=== PATIENT | female | born 1995 | race Caucasian/White ===

== ENCOUNTER → 2019-07-29 16:52 | Outpatient (BNVA) | payer OTHER, SELFPAY | PROVIDERS: Family Provider Nurse Practitioner; PCP Nurse Practitioner; Visit Provider Nurse Practitioner | DX: F41.9 Anxiety disorder, unspecified (principal); Z13.6 Encounter for screening for cardiovascular disorders; Z30.41 Encounter for surveillance of contraceptive pills | CPT/HCPCS: 80053; 80061; 84443; 85025 ==

== ENCOUNTER → 2020-05-21 11:14 | Outpatient (BNVA) | payer OTHER, SELFPAY | PROVIDERS: Family Provider Nurse Practitioner; PCP Nurse Practitioner; Visit Provider Nurse Practitioner Family | DX: Z20.828 Contact with and (suspected) exposure to other viral communicable diseases (principal); J06.9 Acute upper respiratory infection, unspecified | CPT/HCPCS: 87635 ==

== ENCOUNTER → 2020-11-06 10:07 | Outpatient (BNVA) | payer OTHER, SELFPAY | PROVIDERS: Family Provider Nurse Practitioner; PCP Nurse Practitioner; Visit Provider Nurse Practitioner | DX: R53.83 Other fatigue (principal); E55.9 Vitamin D deficiency, unspecified; R13.10 Dysphagia, unspecified; E07.9 Disorder of thyroid, unspecified | CPT/HCPCS: 80053; 81000; 82306; 82607; 83735; 84439; 84443; 84481; 85025; 85651; 86140; 86800 ==

== ENCOUNTER 2020-12-16 14:16 | Outpatient (CLI) | payer OTHER, SELFPAY ==
--- NOTE | 2020-12-16 14:15 | US_ITS ---
WS: [id number] THYROID ULTRASOUND (TI-RADS CRITERIA) History: Neck pressure and swollen. Technique: Ultrasound examination of the thyroid and adjacent soft tissues is performed. FINDINGS: Right lobe: 4.9 cm x 1.2 cm x 1.5 cm. Volume: 4.7 cm3. Normal size and echotexture. No significant are dominant nodules are present. Subcentimeter colloid n odule in the mid RIGHT gland. Lymph nodes: None. Left lobe: 4.9 cm x 1.3 cm x 1.0 cm. Volume: 3.2 cm3. Normal size and echotexture. No significant or dominant nodules are present. Mildly heterogeneous gland. No suspicious mass. There are a few colloid nodules. Isthmus: 0.3 cm. US/US thyroid [id number] Impression: No suspicious thyroid nodules. No thyroid enlargement.
== END 2020-12-16 14:17 | disposition home or self-care (01) ==
PROVIDERS: PCP Nurse Practitioner; Visit Provider Nurse Practitioner
DX: R13.10 Dysphagia, unspecified (principal)
CPT/HCPCS: 76536

== ENCOUNTER → 2021-06-14 15:49 | Outpatient (BNVA) | payer SELFPAY | PROVIDERS: PCP Nurse Practitioner; Visit Provider Nurse Practitioner | DX: F42.9 Obsessive-compulsive disorder, unspecified (principal); F41.9 Anxiety disorder, unspecified; Z12.4 Encounter for screening for malignant neoplasm of cervix | CPT/HCPCS: 88175 ==

== ENCOUNTER → 2023-03-16 13:32 | Outpatient (BNVA) | payer MEDICAID, SELFPAY | PROVIDERS: PCP Family Medicine; Visit Provider Family Medicine | DX: Z00.00 Encounter for general adult medical examination without abnormal findings (principal) | CPT/HCPCS: 80053; 85025 ==

== ENCOUNTER → 2023-04-19 08:05 | Outpatient (BNVA) | payer SELFPAY | PROVIDERS: PCP Family Medicine; Visit Provider Family Medicine | DX: N28.9 Disorder of kidney and ureter, unspecified (principal); Z01.818 Encounter for other preprocedural examination | CPT/HCPCS: 81000 ==

== ENCOUNTER → 2023-04-21 09:03 | Outpatient (BNVA) | payer SELFPAY | PROVIDERS: PCP Family Medicine; Visit Provider Family Medicine | DX: N28.9 Disorder of kidney and ureter, unspecified (principal); Z00.00 Encounter for general adult medical examination without abnormal findings | CPT/HCPCS: 80048; 83735 ==

== ENCOUNTER → 2023-09-05 15:28 | Outpatient (BNVA) | payer MEDICAID, SELFPAY | PROVIDERS: PCP Family Medicine; Visit Provider Family Medicine | DX: L98.9 Disorder of the skin and subcutaneous tissue, unspecified (principal) | CPT/HCPCS: 80053; 83520; 84443; 85025 ==

== ENCOUNTER → 2023-12-19 09:46 | Outpatient (BNVA) | payer MEDICAID, SELFPAY | PROVIDERS: PCP Family Medicine; Visit Provider Nurse Practitioner Family | DX: M79.642 Pain in left hand (principal) | CPT/HCPCS: 73130 ==

== ENCOUNTER 2024-01-23 06:00 | Outpatient (CLI) | payer BC, MEDICAID, SELFPAY | END 2024-01-23 06:01 | disposition home or self-care (01) | LOC: RAD 02-16 09:25 | PROVIDERS: PCP Family Medicine; Visit Provider Specialist | DX: Q79.60 Ehlers-Danlos syndrome, unspecified (principal) | CPT/HCPCS: 36415; 82652; 85651; 86160; 86162; 86235; 86255; 86376; 86431 ==

== ENCOUNTER 2024-02-22 07:00 | Outpatient (CLI) | payer BC, MEDICAID, SELFPAY ==
--- NOTE | 2024-02-22 07:00 | USCV_ITS ---
Te Osiris Age: 28 Gender: F : 1995 Exam Date: 02/22/2024 07:14 Ordering Phys: Gracie Vasques MD Technologist: Exam Location: [facility] [place] Indication: cp BP: 120 / 73 HR: 76 Rhythm: Sinus Technical Quality: Adequate MEASUREMENTS (Male / Female) Normal Values 2D ECHO LV Diastolic Diameter PLAX 4.2 cm 4.2 - 5.9 / 3.9 - 5.3 cm IVS Diastolic Thickness 1.1 cm 0.6 - 1.0 / 0.6 - 0.9 cm IVS Systolic Thickness 1.3 cm LVPW Diastolic Thickness 0.9 cm 0.6 - 1.0 / 0.6 - 0.9 cm LVPW Systolic Thickness 1.4 cm LVOT Diameter 2.3 cm LV Ejection Fraction 2D Teich 68.1 % LV Ejection Fraction MOD 4C 58.0 % LV Ejection Fraction MOD 2C 61.9 % LV Ejection Fraction 2C AL 59.9 % LA Diameter 2.8 cm RA Systolic Volume 4C AL 33.9 ml RA Systolic Volume 4C MOD 31.4 ml LA Sys Volume AL 52.0 cm cubed LA Sys Volume Index AL 29.8 cm cubed/m squared Aorta at Sinotubular Diameter 2.3 cm IVC Diameter 1.8 cm M-MODE LA Ao Ratio MM 1.2 AV Cusp Separation MM 2.2 cm DOPPLER AV Peak Velocity 119.0 cm/s LVOT Peak Velocity 103.0 cm/s AV Area Cont Eq vti 3.7 cm squared AV Area Cont Eq pk 3.5 cm squared MV Peak Velocity 70.0 cm/s MV Area PHT 7.6 cm squared Mitral E to A Ratio 1.2 TV Peak Velocity 191.0 cm/s TR Peak Velocity 225.0 cm/s TR Peak Gradient 20.3 mmHg TV Peak E Velocity 113.0 cm/s Right Atrial Pressure 3.0 mmHg Pulmonary Artery Systolic Pressu 23.3 mmHg PV Peak Velocity 95.0 cm/s FINDINGS Left Ventricle Normal left ventricular size, systolic function and wall thickness, with no regional wall motion abnormalities. Left ventricular ejection fraction is estimated at 60 %. Normal diastolic function. Right Ventricle The right ventricle is normal in size and function. Right Atrium The right atrium is normal in size. Left Atrium The left atrium is normal in size. Mitral Valve Structurally normal mitral valve without significant stenosis or prolapse. There is no mitral regurgitation. Aortic Valve Structurally normal aortic valve without significant sclerosis or stenosis. There is no aortic regurgitation. Tricuspid Valve Structurally normal tricuspid valve without significant stenosis and trace regurgitation. Pulmonary artery systolic pressure is normal. Pulmonic Valve Structurally normal pulmonic valve without significant stenosis. There is no pulmonic regurgitation. Pericardium Normal pericardium without effusion. Aorta Normal ascending aorta dimension. IVC The inferior vena cava appears normal. CONCLUSIONS Normal left ventricular size, systolic function and wall thickness, with no regional wall motion abnormalities. Left ventricular ejection fraction is estimated at 60 %. Normal diastolic function. Structurally normal tricuspid valve without significant stenosis and trace regurgitation. Pulmonary artery systolic pressure is normal. There is no pericardial effusion. Right atrial pressure is around 5 mm of mercury. Lazaro Koch MD (Electronically Signed) Final Date: 22 February 2024 10:19 S
--- NOTE | 2024-02-22 07:09 | XR_ITS ---
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 No vertebral body. Normal odontoid. Intervertebral disc spaces are intact and well preserved. Normal facet joint alignment. 2 mm of anterolisthesis of C2 in relation to C3 with 1 to 2 mm of anterolisthesis of C3 in relation t o C4. These listheses are relatively stable in flexion and reduces in extension. No other vertebral b dawson movement with flexion or extension. XR/XR cervical spine fl/ex [id number] IMPRESSION: Abnormal cervical spine curvature and listheses as above.
== END 2024-02-22 07:01 | disposition home or self-care (01) ==
LOC: RAD 07:01
PROVIDERS: PCP Family Medicine; Visit Provider Specialist
DX: Q79.60 Ehlers-Danlos syndrome, unspecified (principal); M43.12 Spondylolisthesis, cervical region
CPT/HCPCS: 72040; 93306

== ENCOUNTER → 2024-06-07 09:07 | Outpatient (BNVA) | payer BC, SELFPAY | PROVIDERS: PCP Family Medicine; Visit Provider Family Medicine | DX: F41.9 Anxiety disorder, unspecified (principal); M79.7 Fibromyalgia; Z30.9 Encounter for contraceptive management, unspecified | CPT/HCPCS: 81025 ==

== ENCOUNTER → 2024-07-24 11:12 | Outpatient (BNVA) | payer BC, SELFPAY | PROVIDERS: PCP Family Medicine; Visit Provider Nurse Practitioner | DX: F42.9 Obsessive-compulsive disorder, unspecified (principal); E55.9 Vitamin D deficiency, unspecified; F41.9 Anxiety disorder, unspecified | CPT/HCPCS: 80053; 82306; 82607; 84443 ==

== ENCOUNTER 2024-11-06 13:09 | Emergency (ER) | payer SELFPAY ==
[2024-11-06 13:16] VITALS: BP 119/85; PULSE 126; RESP 16; TEMP 36.8; O2SAT 96; BMI 21.7
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
[2024-11-06 15:07] VITALS: BP 127/86; PULSE 88; O2SAT 97
== END 2024-11-06 15:11 | disposition home or self-care (01) ==
PROVIDERS: Emergency Provider Physician Assistant; PCP Family Medicine
DX: S80.02XA Contusion of left knee, initial encounter (principal); S16.1XXA Strain of muscle, fascia and tendon at neck level, initial encounter; V89.2XXA Person injured in unspecified motor-vehicle accident, traffic, initial encounter; R42 Dizziness and giddiness; R11.0 Nausea
CPT/HCPCS: 70450; 72125; 99284

== ENCOUNTER → 2024-12-02 12:59 | Outpatient (BNVA) | payer SELFPAY | PROVIDERS: PCP Family Medicine; Visit Provider Family Medicine | DX: M79.7 Fibromyalgia (principal); F41.9 Anxiety disorder, unspecified; R53.81 Other malaise; R53.83 Other fatigue | CPT/HCPCS: 80053; 82306; 82607; 83735; 84443; 85025; 85651; 86140 ==

== ENCOUNTER 2025-02-06 08:44 | Outpatient (CLI) | payer OTHER, SELFPAY ==
--- NOTE | 2025-02-06 08:45 | MR_ITS ---
WS: [id number] MRI CERVICAL SPINE NONCONTRAST HISTORY: M54.2 - Cervicalgia COMPARISON: None available. Technique: Multiplanar, multisequence noncontrast imaging of the cervical spine. Normal cervical alignment with no compression fracture or significant disc space narrowing. Signal within the cervical cord is normal. Visualized posterior fossa is unremarkable. Craniocervical junction, C1 and C2 relationship, odontoid process and soft tissues are normal. C2-C3: Normal. C3-C4: Normal. C4-C5: Normal. C5-C6: Mild osteophytic ridging. Very minimal LEFT foraminal narrowing. C6-C7: Normal. C7-T1: Normal. Paraspinal soft tissue are normal. MR/MR cervical spin wo con* [id number] IMPRESSION: 1. No high-grade central or foraminal stenosis. 2. Minimal LEFT foraminal narrowing due to osteophyte at C5-6. 3. Normal signal within the cord.
== END 2025-02-06 08:45 | disposition home or self-care (01) ==
LOC: RAD 08:45
PROVIDERS: PCP Family Medicine; Visit Provider Specialist
DX: M54.2 Cervicalgia (principal); G43.711 Chronic migraine without aura, intractable, with status migrainosus; F07.81 Postconcussional syndrome
CPT/HCPCS: 72141